=== PATIENT | male | born 1965 | race Caucasian/White ===

== ENCOUNTER 2019-11-30 14:19 | Inpatient (IN) | payer OTHER, SELFPAY ==
[~2019-11-30] VITALS: Ht 180.3 cm; Wt 104.3 kg
[2019-11-30 14:27] VITALS: Ht 180.3 cm; Wt 104.3 kg
--- NOTE | 2019-11-30 14:29 | NUR ---
PT BIBA FROM [facility] FOR C.O SOB, GENERAL WEAKNESS AND DIARRHEA X5DAYS. PT TESTED COVID + UNKNOWN TEST DATE. PT REPORTS HIS SYMPTOMS HAVE BEEN GETTING WORSE OVER LAST 5 DAYS. LUNGS PIMENTEL DIMINISHED IN ALL PIMENTEL UPON AUSCULTATION, O2 @ 92% ON 2L CHANGED TO 4L O2 SAT @ 98%. PER EMS 12 LEAD NORMAL. HX OF CIRRHOSIS, HTN, HYPOTHYROIDISM AND MED LIST IN FOLDER. PT STATES MINIMAL SOB, ANMD STATES "FEELAS BETTER" NOW ON OXYGEN. PT PLACED ON FULL CM AND O2, NKA. VSS. ASSISTANT FINANCIAL ACCOUNTANT AT BEDSIDE. WILL CONTINUE TO MONITOR. WAITING MSE.
[2019-11-30 15:02] LABS: RED CELL DISTRIBUTION WIDTH 13.5 % (11.5-14.5)
[2019-11-30 15:12] LABS: PLATELET COUNT 67 x10^3mcL (130-400)
[2019-11-30 15:15] LABS: CALCIUM 8.5 mg/dL (8.5-10.1); CARBON DIOXIDE 23.8 mmol/L (21-32); CHLORIDE SERUM 106 mmol/L (98-107); CREATININE SERUM 1.1 mg/dL (0.7-1.3); GFR1 > 60 mL/min; GLUCOSE SERUM 94 mg/dL (74-106); POTASSIUM SERUM 3.7 mmol/L (3.5-5.1); SODIUM SERUM 140 mmol/L (136-145)
--- NOTE | 2019-11-30 15:30 | NUR ---
PT GIVEN URINAL TO URINATE TO OBTAINE URIEN SPECIMEN FOR UA.
[2019-11-30 15:31] LABS: ALKALINE PHOSPHATASE 39 U/L (46-116); ALT/SGPT 32 U/L (16-63); AST/SGOT 44 U/L (15-37); BILIRUBIN TOTAL 0.8 mg/dL (0.20-1.00); TOTAL PROTEIN, SERUM 6.3 g/dL (6.4-8.2)
[2019-11-30 15:33] LABS: ALBUMIN 3.1 g/dL (3.4-5.0); BAND NEUTROPHIL 5 % (0-10); METAMYELOCTE 1 % (0-2); MONOCYTE 9 % (0-7); SEGMENTED NEUTROPHILS 58 % (37-75)
[2019-11-30 15:34] LABS: PLATELET MORPHOLOGY PLATELETS DECREASED; rbc morphology (normal/abnorm) NORMAL (NORMAL)
--- NOTE | 2019-11-30 16:13 | NUR ---
PT RESTING IN BED WITH NO SIGNS OF DISTRESS.
[2019-11-30 16:51] LABS: microscopic required? YES; urine erythrocyte 3+ (NEGATIVE)
[2019-11-30 17:11] VITALS: BP 119/59
[2019-11-30] MEDS ORDERED: INDERAL LA60 MG PO (17:14)
[2019-11-30] MEDS ORDERED: PAXIL40 M1 (17:15)
[2019-11-30] MEDS ORDERED: LAMOTRIGINE300 MG PO (17:15)
[2019-11-30] MEDS ORDERED: SYNTHROID0.1 MG PO (17:15)
[2019-11-30] MEDS ORDERED: AUGMENTIN1 TA1 PO (17:16)
[2019-11-30] MEDS ORDERED: PRILOSEC OTC20 M1 PO (17:16)
[2019-11-30] MEDS ORDERED: IVERMECTIN3 MG (17:17)
[2019-11-30] MEDS ORDERED: NOVOLOG100 U/ML (17:18)
[2019-11-30] MEDS ORDERED: TAMSULOSIN HCL0.4 MG (17:18)
[2019-11-30] MEDS ORDERED: FINASTERIDE1 MG (17:18)
[2019-11-30] MEDS ORDERED: [UNRECOGNIZED DRUG - OTHER] (17:19)
--- NOTE | 2019-11-30 17:27 | NUR ---
GAVE REPORT TO LUIS RIZVI AT [facility] RM [id number] FOR FURTHER CARE OF PT.
[2019-11-30 18:43] VITALS: BP 118/74
--- NOTE | 2019-11-30 19:39 | NUR ---
RECEIVED PATIENT FROM ER NURSE, PATIENT ALERT AND ORIENTED X 4, NO C/O PAIN, LUNG SOUNDS CLEAR ON RA, BOWEL SOUNDS ACTIVE, SKIN INTACT, IV IN RAC INTACT AND PATENT, PATIENT ABLE TO AMBULATE INDEPENDENTLY, PATIENT PLEASANT AND COOPERATIVE, INSTRUCTED PATIENT ON USE OF CALL LIGHT, NO OTHER NEEDS AT THIS TIME
--- NOTE | 2019-11-30 20:55 | NUR ---
PT RECIEVED FROM DAY SHIFT NURSE. PT IS RESTING IN BED AT THIS TIME. PT IS A/O X4. DROPLET ISOLATION, COVID +. PT IS ON TELE 28, SINUS BRADYCARDIA. PAPABLE PULSES, NO EDEMA PRESENT. PT HAS BILATERAL CLEAR LUNGS SOUNDS ON AUSCULTATION. PT IS ON ROOM AIR, SP02 93%. BOWEL SOUNDS ARE ACTIVE, LAST BM 5/10. PT IS ABLE TO SELF VOID. PT IS ABLE TO AMBULATE. SKIN CLEAN AND INTACT. PT DENIES PAIN AND DISCOMFORT. IV IN THE RAC, CDI. CALL LIGHT WITHIN REACH. WILL CONTINUE TO MONITOR.
[2019-11-30 21:44] VITALS: BP 105/54
--- NOTE | 2019-12-01 00:15 | NUR ---
PT IS RESTING IN BED AT THIS TIME. PT DENIES PAIN OR DISCOMFORT. NO S/S OF ACUTE DISTRESS AT THIS TIME. ALL NEEDS AND CONCERNS ADDRESSED AT THIS TIME. CALL LIGHT WITHIN REACH. WILL CONTINUE TO MONITOR.
--- NOTE | 2019-12-01 01:16 | NUR ---
SPOKE ON THE PHONE WITH [facility] OFFICER ABOUT NEEDED THE PT COVID RESULTS FAXED FOR OUR RECORDS. PROVIDED FAX NUMBER. THEY ARE TO FAX INFORMATION TO [facility].
[2019-12-01 06:30] VITALS: BP 101/49
--- NOTE | 2019-12-01 06:44 | NUR ---
PT RESTING IN BED. PT DENIES PAIN OR DISCOMFORT AT THE MOMENT. PT IS A/O X4, CALM AND COOPERATIVE. PT IS BREATHING E/U, RMA. PT DENIED CP AND SOB. NO S/S OF ACUTE DISTRESS AT THIS TIME. ALL NEEDS AND CONCERNS ADDRESSED THIS SHIFT. CALL LIGHT WITHIN REACH, WILL ENDORSE TO DAY SHIFT NURSE.
[2019-12-01 09:08] VITALS: BP 89/60
[2019-12-01 12:36] VITALS: BP 117/89
[2019-12-01 17:59] VITALS: BP 121/72
--- NOTE | 2019-12-01 18:35 | NUR ---
REMAINS IN NO ACUTE DISTRESS, ON RA SATS 93%. NO SOB NOTED AT THIS TIME. OCC DRY COUGH. VS REMAINS WNL. HL PATENT. DROPLET PRECAUTION MAINTAINED. CIM GUARDS AT DOOR. CALL LIGHT WITHIN REACH. WILL BE ENDORSED TO INCOMING SHIFT.
--- NOTE | 2019-12-01 20:00 | NUR ---
RECEIVED PT IN BED, A/OX4. RESP. EVEN AND UNLABORED. ON ROOM AIR, SAT. 94%. LUNG SOUNDS CLEAR. DENIES SOB, NO ACUTE DISTRESS NOTED. SB ON THE MONITOR, DENIES CP OR ANY DISCOMFORT AT THIS TIME. HL TO RAC, INTACT AND PATENT. VOIDING FREELY. GUARDS AT THE DOOR.REMAINS ON DROPLET ISOLATION, WILL MAINTAIN PREC. CALL LIGHT WITHIN REACH. WILL CONTINUE TO MONITOR.
[2019-12-01 21:53] VITALS: BP 116/68
--- NOTE | 2019-12-02 01:37 | NUR ---
PT RESTING QUIETLY IN BED, EYES CLOSED AT THIS TIME, EASILY AROUSABLE. RESP. EVEN AND UNLABORED. NO ACUTE DISTRESS NOTED. GUARDS AT THE DOOR. CALL LIGHT WITHIN REACH. WILL CONTINUE TO MONITOR.
[2019-12-02 05:50] VITALS: BP 128/63
--- NOTE | 2019-12-02 05:59 | NUR ---
NO COMPLAINTS NOTED AT THIS TIME. AFEBRILE AND VITAL SIGNS STABLE. RESP. EVEN AND UNLABORED. REMAINS ON ROOM AIR, SAT. 94%. DENIES SOB OR ANY DISTRESS . NO ACUTE DISTRESS NOTED. DUE MEDS GIVEN ORDERED, TOL. NGUYEN. FRANK AT THE DOOR. CALL LIGHT WITHIN REACH. WILL CONTINUE TO MONITOR.
[2019-12-02 08:30] VITALS: BP 108/60
--- NOTE | 2019-12-02 08:48 | NUR ---
RECIEVED PT LYING IN BED A/A. BREATHING EQUAL/UNLABORED ON RA, SATING AT 93%. ON CONT PULSE OX. IV SITE WNL. BED IN LOW POSITION, CALL LIGHT IN REACH, SAFETY PRECAUTIONS IN PLACE. WILL CONTINUE TO MONITOR
--- NOTE | 2019-12-02 12:08 | NUR ---
PT SITTING UP IN BED A/A. BREATHING EQUAL/UNLABORED ON RA. PT C/O RODRÍGUEZ, TYLEONL GIVEN. BED IN LOW POSITION, CALL LIGHT IN REACH, SAFETY PRECAUTIONS IN PLACE. WILL CONTINUE TO MONITOR
[2019-12-02 12:36] VITALS: BP 103/62
[2019-12-02 16:30] VITALS: BP 113/64
--- NOTE | 2019-12-02 18:27 | NUR ---
PT LYING IN BED A/A. BREATHING EQUAL/UNLABORED ON RA. NO ACUTE CHANGES/PAIN/DISTRESS. IV SITE WNL. BED IN LOW POSITION, CALL LIGHT IN REACH, SAFETY PRECAUTIONS IN PLACE. WILL ENDORSE TO NIGHT NURSE
--- NOTE | 2019-12-02 19:20 | NUR ---
RECEIVED PATIENT FROM PREVIOUS SHIFT NURSE. PATIENT AWAKE, ALERT AND ORIENTED X4. PATIENT ABLE TO MAKE NEEDS KNOWN. NO ACUTE DISTRESS. ROOM AIR. TELE #[address] ISOLATION PRECAUTIONS IN PLACE. EVEN AND UNLABORED BREATHING. PATIENT DENIES ANY PAIN, CHEST PAIN OR SOB AT THIS MOMENT. URINAL AT BEDSIDE. RAC IV WNL. NO ERYTHEMA/EDEMA AT IV SITE. CONT PULSE OX IN PLACE. BED IN LOWEST POSITION. CALL LIGTH WITHIN REACH.
[2019-12-02 21:02] VITALS: BP 126/74
--- NOTE | 2019-12-03 00:25 | NUR ---
PATIENT IN NO ACUTE DISTRESS. PATIENT CURRENTLY SLEEPING. CONT PULSE OX IN PLACE, SPO2 94. TELE MONITOR #[address] NO C/O PAIN, CHEST PAIN OR SOB AT THIS MOMENT. BED IN LOWEST POSITION. CALL LIGHT WITHIN REACH.
--- NOTE | 2019-12-03 05:30 | NUR ---
REMOVED PATIENT IV, PATIENT C/O BURNING SENSATION AND ASKED TO REMOVE THE IV. HE ALSO REFUSES A NEW IV INSERTION.
[2019-12-03 07:10] LABS: PLATELET COUNT 88 x10^3mcL (130-400); RED CELL DISTRIBUTION WIDTH 14.6 % (11.5-14.5)
--- NOTE | 2019-12-03 07:20 | NUR ---
RECEIED PATIENT. IN BED, AAOX4. NO ACUTE RESP DISTRESS NOTED. NO C/O PAIN. NO IV ACCESS AT THIS TIME. REFUSES TO START A NEW IV AT THIS TIME. EDUCATION PROVIDED. SAFETY PREC IN PLACE. CALL LIGHT WITHIN REACH. WILL CONTINUE TO MONITOR. REMAINS ON ISOLATION FOR POSITIVE COVID. GUARDS OUTSIDE ROOM.
--- NOTE | 2019-12-03 07:37 | NUR ---
PATIENT IN NO ACUTE DISTRESS. EVEN AND UNLABORED BREATHING, ROOM AIR. NO C/O OF CHEST PAIN, PAIN OR SOB AT THIS MOMENT. PATIENT CURRENTLY SLEEPING. BED IN LOWEST POSITION. CALL LIGHT WITHIN REACH. WILL ENDORSE CARE TO DAY NURSE. WILL CONTINUE TO MONITOR.
[2019-12-03 08:10] VITALS: BP 129/70
[2019-12-03 08:27] LABS: CALCIUM 8.8 mg/dL (8.5-10.1); CARBON DIOXIDE 26.8 mmol/L (21-32); CHLORIDE SERUM 108 mmol/L (98-107); CREATININE SERUM 0.9 mg/dL (0.7-1.3); GFR1 > 60 mL/min; GLUCOSE SERUM 86 mg/dL (74-106); POTASSIUM SERUM 4.2 mmol/L (3.5-5.1); SODIUM SERUM 144 mmol/L (136-145)
--- NOTE | 2019-12-03 09:15 | NUR ---
PATIENT IN BED, AAOX4. NO ACUTE RESP DISTRESS NOTED. REMAINS ON ROOM AIR. NO C/O PAIN. STILL REFUSES STARTING IV AT THIS TIME. SAFETY PREC IN PLACE. CALL LIGHT WITHIN REACH. WILL CONTINUE TO MONITOR.
--- NOTE | 2019-12-03 09:45 | NUR ---
PER LAB, PATIENT REMAINS COVID POSITIVE. WILL CONTINUE TO MONITOR.
--- NOTE | 2019-12-03 10:57 | NUR ---
SPOKE WITH DR. FONTAINE REGARDING PATIENT STILL POSITIVE FOR COVID. WBC 2.6, PLT 88, HCT 38. PER DR. FONTAINE, PATIENT OK FOR DISCHARGE AND TO JUST CONTINUE ISOLATION.
[2019-12-03 11:06] VITALS: BP 129/70
[2019-12-03 11:57] LABS: BAND NEUTROPHIL 0 % (0-10); SEGMENTED NEUTROPHILS 32 % (37-75)
[2019-12-03 11:58] LABS: MONOCYTE 28 % (0-7); rbc morphology (normal/abnorm) ABNORMAL (NORMAL)
[2019-12-03 11:59] LABS: PLATELET MORPHOLOGY PLATELETS DECREASED
[2019-12-03 12:20] VITALS: BP 134/81
--- NOTE | 2019-12-03 12:35 | NUR ---
DISCHARGE INSTRUCTIONS GIVEN TO PATIENT. NO ACUTE DISTRESS NOTED. TELE MONITOR RETURNED TO TELE STATION. UNDERWEAR PROVIDED. MASK PROVIDED. ALL NEEDS MET. DISCHARGE PAPERS GIVEN TO GUARD. WAITING FOR TRANSPORT ARRIVAL AT THIS TIME.
--- NOTE | 2019-12-03 14:15 | NUR ---
STILL WAITING FOR TRANSPORT AT THIS TIME. PER GUARD, TRANSPORT WILL BE COMING IN A FEW MINUTES. WILL CONTINUE TO MONITOR.
--- NOTE | 2019-12-03 14:44 | NUR ---
TRANSPORT ARRIVED TO [employer] PROFESSIONAL PATIENT. PATIENT IS BEING DISCHARGED IN STABLE CONDITION. ACCOMPANIED BY TRANSPORT VIA WHEEL [facility]. ALL NEEDS MET.
== END 2019-12-03 14:45 | disposition other institution (70) | DRG 177 ==
LOC: ED 14:19 → DU 16:50
PROVIDERS: Emergency Medicine; ADMIT Internal Medicine
DX: U07.1 COVID-19 (principal); J96.01 Acute respiratory failure with hypoxia; J12.89 Other viral pneumonia; D61.818 Other pancytopenia; N39.0 Urinary tract infection, site not specified; I10 Essential (primary) hypertension; K74.60 Unspecified cirrhosis of liver; E03.9 Hypothyroidism, unspecified
CPT/HCPCS: 36600; 83880; 85378; 87804; G0378; J0456; J0696; J3535; J7040; J7050; J7060; Q0092